=== PATIENT | female | born 1945 | race Caucasian/White ===

== ENCOUNTER 2022-12-01 08:30 | Day surgery (SDC) | payer OTHER ==
[2022-11-27 12:55] VITALS: BMI 29.5
[2022-12-01] MEDS ORDERED: PROPOFOL 60 ML ONE (09:56)
[2022-12-01 14:46] VITALS: TEMP 97.7
[2022-12-01 14:51] VITALS: BP 117/67; PULSE 70; RESP 15
== END 2022-12-01 11:20 | disposition home or self-care (01) ==
LOC: FASU-ENDO 08:30
PROVIDERS: ATTEND Internal Medicine Gastroenterology
PROC: 0DJD8ZZ Inspection of Lower Intestinal Tract, Via Natural or Artificial Opening Endoscopic (ICD-10-PCS; principal; 2022-12-01 10:07)
DX: Z12.11 Encounter for screening for malignant neoplasm of colon (principal)